=== PATIENT | female | born 1960 | race Caucasian/White ===

== ENCOUNTER 2018-01-29 14:14 | Observation (INO) | payer MEDICAID ==
[~2018-01-29] VITALS: Ht 162.6 cm; Wt 101.4 kg
[2018-01-29] MEDS ORDERED: VALIUM10 MG PO (15:20)
[2018-01-29] MEDS ORDERED: NORCO 10-325 TA1 TAB PO (15:20)
[2018-01-29 16:12] VITALS: BP 92/49; BMI 38.3
[2018-01-29 20:30] VITALS: BP 136/63
[2018-01-30 08:58] VITALS: BP 138/65; BP 174/80
[2018-01-30 09:07] VITALS: Ht 162.6 cm; Wt 101.4 kg
== END 2018-01-30 12:49 | disposition left against medical advice (07) ==
LOC: D.M2 14:14 → OBSVTIME 15:04 → D.M2 01-30 12:49
DX: I26.99 Other pulmonary embolism without acute cor pulmonale (principal); F15.10 Other stimulant abuse, uncomplicated; Z91.19 Patient's noncompliance with other medical treatment and regimen